=== PATIENT | female | born 2000 | race Caucasian/White ===

== ENCOUNTER 2024-08-14 19:57 | Emergency (ER) | payer OTHER, SELFPAY ==
[2024-08-14 19:59] VITALS: BP 138/92
--- NOTE | 2024-08-14 22:23 | ED.GENMED ---
History of Present Illness
General
Chief Complaint: Back Pain
Time Seen by Provider: 08/14/24 22:09
History of Present Illness
History of Present Illness:
Patient is a 23-year-old female presenting to the emergency department with back pain. Patient states that 5 days ago she went to the chiropractor she has been going for the past 6 months. She believes that since then she has had a muscle sprain.
She feels as if there is significant pain in her lower back. No numbness tingling that is new from her baseline as she does have fibromyalgia and chronic tingling of her extremities. No urinary incontinence or retention. No recent trauma. She
has not tried any medications at home. The pain does not radiate
Past History
Past History
ED Past Medical History: GERD, Psychiatric (anxiety, Bipolar, Depression) and Other (migraine headaches on topamax)
ED Past Surgical History: Other (Gastric sleeve, wisdom teeth, Denies Tonsilectomy)
Social History
Tobacco: Non-smoker
Alcohol: Occasional
Drug: None
Personal: Single
Living: with family
Employment: Other
Phy Exam
Physical Exam
Physical Exam:
GENERAL: in no acute distress
HEENT: normocephalic, extraocular movements intact, moist oral mucosa
NECK: normal inspection
Back: No midline spinal tenderness right lower back tenderness to palpation
RESPIRATORY: no respiratory distress, clear to auscultation bilaterally
CARDIOVASCULAR: regular rate and rhythm
ABDOMEN/: soft, non-distended, non-tender to palpation, no rebound or guarding
EXTREMITIES: non-tender, no edema/swelling
NEUROLOGIC: awake and alert, moves all extremities, equal strength in upper and lower extremities, sensation intact
SKIN: warm
Course
Orders/Labs/Results
Orders:
Orders
08/14/24 22:22
Acetaminophen [Tylenol] 1,000 mg PO NOW STA
Ketorolac [Toradol] 15 mg IM NOW STA
Lidocaine [Lidocaine 4% Patch] 1 patch TOPICAL ONCE ONE
Apply Lidocaine patch(s) to:: lower back
Vital Signs
Initial and Last Documented VS:
Initial Vital Signs
Temp Pulse Resp BP Pulse Ox
99 F 86 16 138/92 100
08/14/24 19:59 08/14/24 19:59 08/14/24 19:59 08/14/24 19:59 08/14/24 19:59
Last Documented Vital Signs
Temp Pulse Resp BP Pulse Ox
99 F 86 16 138/92 100
08/14/24 19:59 08/14/24 19:59 08/14/24 19:59 08/14/24 19:59 08/14/24 19:59
MDM/Problems Addressed
Differential Diagnosis Includes:
23-year-old female presenting to the emergency department for lower back pain after a chiropractor adjustment. Vitals unremarkable exam does show reproducible tenderness to the lower back. History exam likely consistent with MSK pain. No red
flags to suggest cauda equina osteomyelitis or abscess. History and exam not consistent with compression fracture or any other traumatic fractures. Will pain control and reassess.
*Critical Care Note
Total Time (30-74mins, 75-104mins- exclusive of procedures): Not Applicable
Update Note
Update Note:
On reevaluation pain is slightly better. Will discharge at this time. Will send prescription of Flexeril over to take in addition to the Tylenol.
ED Attending Note
-
Portions of this chart may have been created with voice recognition software.� Occasional wrong word or��sound alike� substitutions may have occurred due to the inherent limitations of voice recognition software.
Discharge Plan
Departure
Patient Disposition: Home (Routine Discharge)
Date of Disposition: 08/14/24
Time of Disposition: 23:23
Patient with high blood pressure during this ER visit?: No
Discharge Problem:
Back pain
Instructions: Low Back Pain (DC)
Prescriptions:
New
cyclobenzaprine 5 mg tablet
5 mg PO TID PRN (Reason: muscle spasm) Qty: 30 0RF
No Action
sumatriptan succinate 100 mg Tablet
100 mg PO PRN PRN (Reason: migraines)
ondansetron HCl 4 mg Tablet
4 mg PO Q6H PRN (Reason: nausea)
spironolactone 100 mg Tablet
100 mg PO DAILY
pantoprazole 40 mg Tablet,Delayed Release (Dr/Ec)
40 mg PO DAILY
escitalopram oxalate [Lexapro] 10 mg Tablet
30 mg PO HS
propranolol 40 mg Tablet
80 mg PO BID
Slynd 4 mg (28) Tablet
1 tab PO DAILY
aripiprazole 5 mg tablet
5 mg PO DAILY
bupropion HCl 150 mg tablet extended release 24 hr
150 mg PO DAILY
sennosides-docusate sodium [Senna Plus] 8.6-50 mg Tablet
1 tab PO BID 30 Days Qty: 60 0RF
Eliquis DVT-PE Treat 30D Start 5 mg (74 tabs) tablets,dose pack
See Rx Instructions .ROUTE .COMPLEX Qty: 74 0RF
Rx Instructions:
orally per package directions
oxycodone-acetaminophen 5-325 mg Tablet
1 tab PO Q8H PRN (Reason: pain) 2 Days Qty: 6 0RF
Patient Comments:
01/09/2023: LAST FILLED 12/27/22, 5 TABS FOR 2 DAYS FROM [facility]
Rx Instructions:
only 5 pills given
polyethylene glycol 3350 [Miralax] 17 gram/dose powder
4 g PO DAILY PRN (Reason: laxative effect) Qty: 510 0RF
Referrals:
Tierra Lyons MD [Family Provider] -
Activity Restrictions/Additional Instructions:
We discussed pain medications:
I did prescribe you Flexeril. Please take it as prescribed.
You may take Tylenol (also known as Acetaminophen) for pain.
You may take 1000mg Acetaminophen (two extra-strength tablets) per dose, which should be taken every 6-8 hours, or three times a day.
If you have normal strength Tylenol, you can take 650mg (two normal strength tablets) every 4-6 hours.
Do not take more than 3,000mg (3 grams) of Acetaminophen per day.
Never take more than as directed on the bottle.
You may also benefit from using a Lidocaine Patch (also known as 'Salon Pas'), which is an over the counter pain patch.
Place it just over the site of pain, avoiding areas of skin damage, as per instructions on the patch.
Please see your primary care doctor soon to be reevaluated and to make sure that you are improving. We have included information about establishing care with a doctor if you do not have one.
We talked about your evaluation, diagnosis, and treatment in the Emergency Department today. You must see your primary doctor for recheck and followup care in order to evaluate your progress or any changes. Have your doctor recheck the test
results/information from the ED visit. As discussed, RETURN to the ED if you develop worsening/changing symptoms or have no improvement in symptoms after the treatments provided.
Interventions
Interventions:
*Risk Screen - Suicide Last Done: 08/14/24 19:59
*Neglect/Abuse Screening Last Done: 08/14/24 19:59
Discharge Date and Time
Print Language: TURKISH
[2024-08-14] MEDS: TORADOL 15 MG IM (22:30)
[2024-08-14] MEDS: LIDOCAINE 4% PATCH 1 PATCH TOPICAL (22:31)
[2024-08-14] MEDS: TYLENOL 1000 MG PO (22:31)
[2024-08-14 23:51] VITALS: BP 125/73
== END 2024-08-14 23:53 | disposition home or self-care (01) ==
LOC: EMR 19:57
PROVIDERS: EMERGENCY PHYSICIAN Student in an Organized Health Care Education/Training Program; FAMILY PHYSICIAN Family Medicine
DX: M54.9 Dorsalgia, unspecified (principal); K21.9 Gastro-esophageal reflux disease without esophagitis; F41.9 Anxiety disorder, unspecified; F31.9 Bipolar disorder, unspecified; M79.7 Fibromyalgia
CPT/HCPCS: 99282; 96372

== ENCOUNTER 2024-11-27 15:12 | Emergency (ER) | payer OTHER, SELFPAY ==
[2024-11-27 15:27] VITALS: BP 143/68
[2024-11-27 15:51] LABS: % Basophils 0.3 % (0-2); % Eosinophils 2.3 % (0-6); % Immature Granulocytes 0.2 % (0-0.5); % Lymphocytes 34.1 % (20.5-51.1); % Monocytes 6.2 % (1.7-9.3); % Neutrophils 56.9 % (42.2-75.2); Absolute Eosinophils 0.2 10^3/uL (0-0.7); Absolute Monocytes 0.6 10^3/uL (0.1-0.6); Hematocrit 41.6 % (37.0-47.0); Hemoglobin 13.6 g/dL (12.0-16.0); Mean Corp Hgb Conc. 32.7 g/dL (33.0-37.0); Mean Corpuscular Hgb 26.1 pg (27.0-31.0); Mean Corpuscular Volume 79.8 fL (81.0-99.0); Nucleated Red Blood Cells % 0 %; Platelet Count 315 10^3/uL (130-400); Red Blood Cell Count 5.21 10^6/uL (4.20-5.40); Red Cell Dist. Width 13.3 % (11.5-14.5); White Blood Cell Count 8.8 10^3/uL (4.8-10.8)
[2024-11-27 16:01] LABS: HCG, Serum Qualitative Screen Negative
[2024-11-27 16:04] LABS: ALT (SGPT) 24 U/L (0-35); AST (SGOT) 20 U/L (14-36); Albumin 4.2 g/dl (3.5-5.0); Alkaline Phosphatase 59 U/L (38-126); Blood Urea Nitrogen 12 mg/dl (7-17); Calcium 9.4 mg/dl (8.4-10.2); Carbon Dioxide 28 mmol/L (22-30); Chloride 107 mmol/L (98-107); Glucose 88 mg/dl (70-99); Potassium 4.1 mmol/L (3.5-5.1); Sodium 141 mmol/L (135-145); Total Bilirubin 0.5 mg/dl (0.2-1.3); Total Protein 7.1 g/dl (6.3-8.2); eGFR > 60.00
[2024-11-27 16:14] LABS: Troponin I < 0.012 ng/ml
--- NOTE | 2024-11-27 17:22 | ED.GENMED ---
History of Present Illness
General
Chief Complaint: Chest Pain
Source: patient
Exam Limitations: none
Time Seen by Provider: 11/27/24 16:48
Nursing documentation reviewed up to this point in time: agreed with
History of Present Illness
History of Present Illness:
23-year-old female with history of migraines, anxiety, bipolar, fibromyalgia gastric sleeve 12/2022, states she is here for nausea that she has had for over a month, intermittent lightheadedness, headache. Since July she has had no meds for her
headache as she was on Ajovy until her insurance did not cover anymore, 2 months ago she visited her neurologist and was given Qulipta prescription which she could not get due to insurance. As were sitting here during this initial exam she says she
just got notified that Qulipta is in at her pharmacy and she can pick it up today.
She denies fever or chills, denies constipation or diarrhea. Denies chest pain or trouble breathing.
She is asking for something for pain, when asked where her pain is she said 'mainly at my headache.'
Past History
Past History
ED Past Medical History: GERD, Psychiatric (anxiety, Bipolar, Depression) and Other (migraine headaches )
ED Past Surgical History: Other (Gastric sleeve, wisdom teeth, Denies Tonsilectomy)
Social History
Tobacco: Non-smoker
Alcohol: Occasional
Drug: None
Personal: Single
Living: with family
Employment: Other
Review of Systems
Review of Systems
Allergies reviewed?: Yes
All Other Systems: ROS reviewed and negative except as documented in HPI and ROS
Neurological: Reports headache (Consistent with her typical migraine, 10/17.)
Phy Exam
Physical Exam
Physical Exam:
GENERAL: No acute distress. A&Ox3.
CONSTITUTIONAL: Afebrile.
EYES: clear, conjunctivae normal
ENMT: moist mucus membranes
RESPIRATORY: Regular respirations, nonlabored, lungs clear.
CARDIOVASCULAR: Regular rate and rhythm, no murmurs, no rubs.
GI: Soft, nontender, normal BS
MUSCULOSKELETAL: Moves with ease. Well perfused.
SKIN: Warm, dry, pink
PSYCH: Normal mood and affect. Well kept, interactive and appropriate
NEUROLOGIC: Awake, alert and oriented. No focal neurological deficits
Scores
Heart Score for Chest Pain Patients
STEMI patient?: Not applicable
Course
Orders/Labs/Results
Orders:
Orders
11/27/24 15:15
ECG [Electrocardiogram (*1)] Urgent
Reason for Study: Chest Pain
EKG- Treatment ONCE
11/27/24 15:30
Test Result ONCE
11/27/24 15:43
Complete Blood Count/With Diff Urgent
Comprehensive Metabolic Panel Urgent
HCG, Serum Qualitative Screen Urgent
Comment: Notify provider if positive test present
Troponin I Urgent
11/27/24 17:22
Dexamethasone [Decadron] 10 mg PO NOW STA
Abnormal Lab Results
11/27/24
15:43
MCV 79.8 L fL
(81.0-99.0)
MCH 26.1 L pg
(27.0-31.0)
MCHC 32.7 L g/dL
(33.0-37.0)
11/27/24 15:43
11/27/24 15:43
Vital Signs
Initial and Last Documented VS:
Initial Vital Signs
Temp Pulse BP Pulse Ox
98.5 F 62 143/68 100
11/27/24 15:27 11/27/24 15:27 11/27/24 15:27 11/27/24 15:27
Last Documented Vital Signs
Temp Pulse Resp BP Pulse Ox
98.5 F 78 18 126/74 99
11/27/24 15:27 11/27/24 17:38 11/27/24 17:38 11/27/24 17:38 11/27/24 17:38
MDM/Problems Addressed
Differential Diagnosis Includes:
Migraine
MDM/Problems Addressed:
23-year-old female with history of migraines, anxiety, bipolar, fibromyalgia gastric sleeve 12/2022, states she is here for nausea that she has had for over a month, intermittent lightheadedness, headache. Since July she has had no meds for her
headache as she was on Ajovy until her insurance did not cover anymore, 2 months ago she visited her neurologist and was given Qulipta prescription which she could not get due to insurance. As were sitting here during this initial exam she says she
just got notified that Qulipta is in at her pharmacy and she can pick it up today.
She denies fever or chills, denies constipation or diarrhea. Denies chest pain or trouble breathing.
She is asking for something for pain, when asked where her pain is she said 'mainly at my headache.'
EKG NSR
Patient is pleasant, in no distress.
Workup here today is unremarkable, she was reassured that her lab work and EKG are normal, copies of both given to her as she has an appointment with her new PCP on January 21.
Will give a dose of Decadron
Pt ambulated out with normal gait at discharge
*EKG
EKG Intrepretation Date: 11/27/24
Interpretation: normal
Heart Rate: 61
Rate: normal
Rhythm: sinus
[place]: normal axis
Interval: normal interval
QRS Pattern: normal QRS
*Critical Care Note
Total Time (30-74mins, 75-104mins- exclusive of procedures): Not Applicable
ED Attending Note
-
Portions of this chart may have been created with voice recognition software.� Occasional wrong word or��sound alike� substitutions may have occurred due to the inherent limitations of voice recognition software.
Discharge Plan
Departure
Patient Disposition: Home (Routine Discharge)
Date of Disposition: 11/27/24
Time of Disposition: 17:25
Patient with high blood pressure during this ER visit?: No
Condition: Good
Discharge Problem:
Headache
Instructions: Headaches in adults
Prescriptions:
No Action
sumatriptan succinate 100 mg Tablet
100 mg PO PRN PRN (Reason: migraines)
ondansetron HCl 4 mg Tablet
4 mg PO Q6H PRN (Reason: nausea)
spironolactone 100 mg Tablet
100 mg PO DAILY
pantoprazole 40 mg Tablet,Delayed Release (Dr/Ec)
40 mg PO DAILY
escitalopram oxalate [Lexapro] 10 mg Tablet
30 mg PO HS
propranolol 40 mg Tablet
80 mg PO BID
Slynd 4 mg (28) Tablet
1 tab PO DAILY
aripiprazole 5 mg tablet
5 mg PO DAILY
bupropion HCl 150 mg tablet extended release 24 hr
150 mg PO DAILY
sennosides-docusate sodium [Senna Plus] 8.6-50 mg Tablet
1 tab PO BID 30 Days Qty: 60 0RF
Eliquis DVT-PE Treat 30D Start 5 mg (74 tabs) tablets,dose pack
See Rx Instructions .ROUTE .COMPLEX Qty: 74 0RF
Rx Instructions:
orally per package directions
oxycodone-acetaminophen 5-325 mg Tablet
1 tab PO Q8H PRN (Reason: pain) 2 Days Qty: 6 0RF
Patient Comments:
01/09/2023: LAST FILLED 12/27/22, 5 TABS FOR 2 DAYS FROM [facility]
Rx Instructions:
only 5 pills given
polyethylene glycol 3350 [Miralax] 17 gram/dose powder
4 g PO DAILY PRN (Reason: laxative effect) Qty: 510 0RF
cyclobenzaprine 5 mg tablet
5 mg PO TID PRN (Reason: muscle spasm) Qty: 30 0RF
Referrals:
Sheridan James, [Family Provider] - Keep scheduled appt
Activity Restrictions/Additional Instructions:
As we discussed, your workup here today shows nothing worrisome. Take a copy of your lab work and your EKG with you to your new doctor's visit on January 21.
follow up clerk your Qulipta at the pharmacy and start it
You were given a dose of Decadron, a steroid that may help with the inflammation/headache.
Interventions
Interventions:
*General Assessment Last Done: 11/27/24 16:20
*Nursing Disposition Last Done: 11/27/24 17:40
ED- Cardiac Assessment Last Done: 11/27/24 16:20
Discharge Date and Time
Discharge Date/Time: 11/27/24 17:56
Print Language: YAKUT
[2024-11-27] MEDS: DECADRON 10 MG PO (17:30)
[2024-11-27 17:38] VITALS: BP 126/74
== END 2024-11-27 17:56 | disposition home or self-care (01) ==
LOC: EMR 15:12
PROVIDERS: Emergency Medicine; EMERGENCY PHYSICIAN Emergency Medicine; FAMILY PHYSICIAN Internal Medicine
DX: R51.9 Headache, unspecified (principal); M79.7 Fibromyalgia; R11.0 Nausea; Z98.84 Bariatric surgery status
CPT/HCPCS: 99284; 80053; 84484; 84703; 85025; 93005

== ENCOUNTER 2025-04-14 18:00 | Emergency (ER) | payer OTHER, SELFPAY ==
[2025-04-14 18:03] VITALS: BP 133/91
[2025-04-14 20:00] VITALS: BP 120/77
[2025-04-14] MEDS: TORADOL 30 MG IV (20:55)
[2025-04-14] MEDS: DECADRON 10 MG IV (20:56)
--- NOTE | 2025-04-14 22:12 | ED.GENMED ---
History of Present Illness
General
Chief Complaint: Weakness
Source: patient, spouse and family
Time Seen by Provider: 04/14/25 19:43
History of Present Illness
History of Present Illness:
Note:
CHIEF COMPLAINT(S)
- Severe lumbar pain with bilateral leg weakness and numbness.
HISTORY OF PRESENT ILLNESS
The patient, a 24-year-old female, presented with severe lumbar pain radiating to both legs, more prominent on the right side. The pain began years ago but has significantly worsened in recent months. Approximately two weeks ago, the patient
experienced a dramatic increase in pain severity and loss of strength in her legs, leading to a near-debilitating state where she has difficulty standing and cannot sit for extended periods without her legs giving out. She reports persistent
tingling and numbness in her feet up to her knees.
The patient noted a history of back pain dating back to childhood and has also been diagnosed with arthritis and fibromyalgia. In the past several months, her back pain and neurological symptoms have become notably worse.
The patient underwent an MRI and X-rays approximately two weeks ago, which revealed severe lumbar spinal stenosis. Treatment options discussed with her neurosurgeon include potential injections by a pain specialist, with surgery suggested as a last
resort due to her age. The patient is awaiting an appointment with a pain specialist.
Additionally, the patient experiences some urinary urgency without incontinence and has a longstanding history of constipation. She has been attending physical therapy twice weekly since January 2023, with some noted improvement in range of motion, but
increasing difficulty performing exercises due to worsening pain and weakness.
PAST MEDICAL AND SURGICAL HISTORY
- Gastric sleeve surgery in December or January 2023.
CHRONIC MEDICAL CONDITIONS SIGNIFICANTLY AFFECTING CARE
- Orthostatic hypotension
- Arthritis
- Fibromyalgia
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
MEDICATIONS
- Drospirenone 4 mg once daily for menstruation-related issues.
- Doxepin 25 mg once daily for sleep.
- Famotidine 40 mg once daily for acid reflux.
- Omeprazole 40 mg once daily for acid reflux.
- Nortriptyline 10 mg once daily for migraines.
- Bupropion 150 mg once daily for depression and anxiety.
- Sumatriptan 20 mg nasal spray as needed for migraines.
- Duloxetine 60 mg once daily for fibromyalgia.
- Prescription for physical therapy twice a week since January 2023.
PHYSICAL EXAM
General: Alert, no acute distress.
Skin: Warm, dry.
Head: Normocephalic, atraumatic.
Neck: Supple, trachea midline.
Eye Ears, nose, mouth, and throat: Oral mucosa moist.
Cardiovascular: Normal peripheral perfusion, No edema.
Respiratory: Respirations are non-labored.
Gastrointestinal: Abdomen nondistended, reports chronic constipation history.
Back: Tenderness throughout thoracic and lumbar regions; midline and paraspinal.
Musculoskeletal: normal range of motion and normal strength limited due to pain.
Neurological: normal deep tendon reflexes; weak dorsalis pulses bilaterally. Strength testing somewhat limited due to pain. Is able to flex at her hips. No clonus bilaterally
Psychiatric: Cooperative, appropriate mood & affect.
PROBLEM LIST
Acute:
- Severe lumbar pain
- Bilateral leg weakness
- Bilateral leg numbness
Chronic:
- Orthostatic hypotension
- Arthritis
- Fibromyalgia
- Possible connective tissue disorder (Tanika-Danlos syndrome suspected)
PLAN
- Attempt to obtain MRI report from patients records for further review.
- Initiate a course of steroids to evaluate for inflammation control and symptom management.
- Provide intravenous pain control and anti-inflammatory medication.
- Monitor blood sugar levels due to steroid use and potential rise, noting the patient is not diabetic.
- Continue with physical therapy as tolerated.
- Coordinate with pain specialist for potential injections.
- Follow up with neurosurgeon regarding surgical options if conservative management fails.
- Consider ongoing evaluation for Tanika-Danlos syndrome or other connective tissue disorder as indicated.
DIFFERENTIAL DIAGNOSIS
The Differential Diagnosis includes, in no particular order and is not limited to:
1. Lumbar spinal stenosis
2. Cauda equina syndrome
3. Spinal cord compression
4. Orthostatic hypotension
5. Fibromyalgia
6. Lumbar disc herniation
7. Radiculopathy
8. Peripheral neuropathy
9. Tanika-Danlos syndrome (suspected connective tissue disorder)
10. Sciatica
Disposition:
SUMMARY OF ENCOUNTER
The patient is a 24-year-old female presenting with severe lumbar pain and a recent MRI as of March 31, which showed various lumbar spine abnormalities including mild diffuse disc bulge with mild canal spinal stenosis at L4-L5, and L5-S1
diffuse disc bulge with central disc protrusion that probably impinges the bilateral traversing S1 nerve roots. The MRI findings included severe spinal canal stenosis and moderate bilateral neural foraminal narrowing. A rectal exam revealed normal
rectal tone and sensation, and normal deep tendon reflexes bilaterally. Given the severe pain and associated complaints, the plan is to initiate steroids and pain control while awaiting follow-up with a pain specialist. The patient was advised to
return if experiencing progressive symptoms, particularly related to urinary or bowel incontinence.
DISPOSITION
Discharge.
ASSESSMENT
The patients symptoms and MRI findings support the presence of lumbar spinal stenosis with potential nerve root impingement. There is no evidence on exam suggestive of cauda equina syndrome at this time. MRI from March 31 revealed no evidence
of cauda equina syndrome.
EMERGENCY TREATMENTS ADMINISTERED
Steroids and additional pain control medications administered.
PLAN
Initiate a course of steroids and provide pain control. The patient is advised to follow up with a pain specialist the following day. Instructed to return immediately if experiencing progressing symptoms, especially related to urinary or bowel
incontinence.
MEDICATION RECONCILIATION
Steroids and additional pain control medications were administered for symptom management.
MEDICAL DECISION MAKING
-Complexity of Data Reviewed: Chronic conditions affecting care include orthostatic hypotension, arthritis, fibromyalgia, and suspected connective tissue disorder. Differential diagnosis includes lumbar spinal stenosis, cauda equina syndrome, spinal
cord compression, lumbar disc herniation, radiculopathy, peripheral neuropathy, Tanika-Danlos syndrome, and sciatica.
-Data:
Category 1
The patients recent MRI was independently reviewed, confirming findings pertinent to the diagnosis.
-Risk:
Prescription medication was prescribed, including steroids and pain control, to manage symptoms.
DIAGNOSIS
- M48.06 - Spinal Stenosis, lumbar region
- M51.36 - Other intervertebral disc degeneration, lumbosacral region
- M79.7 - Fibromyalgia
Past History
Past History
ED Past Medical History: GERD, Psychiatric (anxiety, Bipolar, Depression) and Other (migraine headaches )
ED Past Surgical History: Other (Gastric sleeve, wisdom teeth, Denies Tonsilectomy)
Social History
Tobacco: Non-smoker
Alcohol: Occasional
Drug: None
Personal: Single
Living: with family
Employment: Other
Phy Exam
Physical Exam
Physical Exam:
.
Course
Orders/Labs/Results
Orders:
Orders
04/14/25 20:41
Dexamethasone Sod Phosphate [Decadron] 10 mg IV NOW STA
Ketorolac [Toradol] 30 mg IV NOW STA
Vital Signs
Initial and Last Documented VS:
Initial Vital Signs
Temp Pulse Resp BP Pulse Ox
98.4 F 98 20 133/91 99
04/14/25 18:03 04/14/25 18:03 04/14/25 18:03 04/14/25 18:03 04/14/25 18:03
Last Documented Vital Signs
Temp Pulse Resp BP Pulse Ox
98.4 F 97 30 120/77 98
04/14/25 18:03 04/14/25 22:00 04/14/25 22:00 04/14/25 20:00 04/14/25 22:00
*Pulse Oximetry
SaO2: 98
Oxygen Mode of Delivery: Room air
Patient hypoxic: no
*Critical Care Note
Total Time (30-74mins, 75-104mins- exclusive of procedures): Not Applicable
ED Attending Note
-
Portions of this chart may have been created with voice recognition software.� Occasional wrong word or��sound alike� substitutions may have occurred due to the inherent limitations of voice recognition software.
Discharge Plan
Departure
Patient Disposition: Home (Routine Discharge)
Date of Disposition: 04/14/25
Time of Disposition: 22:12
Patient with high blood pressure during this ER visit?: No
Discharge Problem:
Low back pain, Acute lumbar radiculopathy
Instructions: Low back pain (DC)
Prescriptions:
New
prednisone 10 mg Tablet
See Rx Instructions .ROUTE .COMPLEX Qty: 45 0RF
Rx Instructions:
Take By Mouth:
50 mg daily x3 days, 40 mg daily x3 days,
30 mg daily x3 days, 20 mg daily x3 days,
10 mg daily x3 days
hydrocodone-acetaminophen 5-325 mg tablet
2 tab PO Q6H PRN (Reason: Pain) Qty: 12 0RF
No Action
sumatriptan succinate 100 mg Tablet
100 mg PO PRN PRN (Reason: migraines)
ondansetron HCl 4 mg Tablet
4 mg PO Q6H PRN (Reason: nausea)
spironolactone 100 mg Tablet
100 mg PO DAILY
pantoprazole 40 mg Tablet,Delayed Release (Dr/Ec)
40 mg PO DAILY
escitalopram oxalate [Lexapro] 10 mg Tablet
30 mg PO HS
propranolol 40 mg Tablet
80 mg PO BID
Slynd 4 mg (28) Tablet
1 tab PO DAILY
aripiprazole 5 mg tablet
5 mg PO DAILY
bupropion HCl 150 mg tablet extended release 24 hr
150 mg PO DAILY
sennosides-docusate sodium [Senna Plus] 8.6-50 mg Tablet
1 tab PO BID 30 Days Qty: 60 0RF
Eliquis DVT-PE Treat 30D Start 5 mg (74 tabs) tablets,dose pack
See Rx Instructions .ROUTE .COMPLEX Qty: 74 0RF
Rx Instructions:
orally per package directions
oxycodone-acetaminophen 5-325 mg Tablet
1 tab PO Q8H PRN (Reason: pain) 2 Days Qty: 6 0RF
Patient Comments:
01/09/2023: LAST FILLED 12/27/22, 5 TABS FOR 2 DAYS FROM [id number]
Rx Instructions:
only 5 pills given
polyethylene glycol 3350 [Miralax] 17 gram/dose powder
4 g PO DAILY PRN (Reason: laxative effect) Qty: 510 0RF
cyclobenzaprine 5 mg tablet
5 mg PO TID PRN (Reason: muscle spasm) Qty: 30 0RF
Referrals:
Sheridan James DO [Family Provider, Internal Medicine]
Activity Restrictions/Additional Instructions:
Please see your back specialist next 48 hours for follow-up and reevaluation. Return immediately for progressive leg weakness, urinary incontinence, bowel, worsening pain, fevers or any other concerns. Please use ibuprofen every 6 hours for pain
control. Please only use narcotic pain medicine for severe, uncontrollable pain.
Interventions
Interventions:
*Risk Screen - Suicide Last Done: 04/14/25 20:20
*General Assessment Last Done: 04/14/25 18:03
*Neglect/Abuse Screening Last Done: 04/14/25 20:20
*ED- Fall Risk Assessment Last Done: 04/14/25 20:20
*ED COVID-19 Vaccine History Last Done: 04/14/25 20:20
*ED Influenza Vaccine History Last Done: 04/14/25 20:20
ED- Cardiac Assessment Last Done: 04/14/25 20:20
ED- Neurological Assessment Last Done: 04/14/25 20:20
ED- Pulmonary Assessment Last Done: 04/14/25 20:20
Discharge Date and Time
Print Language: BENGALI
== END 2025-04-14 22:27 | disposition home or self-care (01) ==
LOC: EMR 18:00
PROVIDERS: EMERGENCY PHYSICIAN Emergency Medicine; FAMILY PHYSICIAN Internal Medicine
DX: M51.16 Intervertebral disc disorders with radiculopathy, lumbar region (principal); M48.061 Spinal stenosis, lumbar region without neurogenic claudication; M51.379 Other intervertebral disc degeneration, lumbosacral region without mention of lumbar back pain or lower extremity pain; I95.9 Hypotension, unspecified; K21.9 Gastro-esophageal reflux disease without esophagitis; G43.909 Migraine, unspecified, not intractable, without status migrainosus; M79.7 Fibromyalgia; M19.90 Unspecified osteoarthritis, unspecified site; F41.9 Anxiety disorder, unspecified; F31.9 Bipolar disorder, unspecified; Z98.84 Bariatric surgery status
CPT/HCPCS: 99284; 96374; 96375